=== PATIENT | male | born 1945 | race American Indian/Alaskan Native ===

== ENCOUNTER 2021-06-29 15:50 | Emergency (ER) | payer MEDICARE, MEDICAID ==
[~2021-06-29] VITALS: Ht 175.3 cm; Wt 100.0 kg
[~2021-06-29 15:50] MED LIST: ASPI-1265 PO; INSU100V9 SQ; LIRA0.6P2 SQ; LISI10TA27 PO; METO-384 PO
[2021-06-29] MEDS ORDERED: niCARDipine-NS 40mg/200ml IVPB 200 ML IV SCH (15:55)
[2021-06-29] MEDS ORDERED: proCHLORperazine 10 MG/2 ml inj IV ONE (15:55)
[2021-06-29 16:14] LABS: BASOPHILS % (AUTO) 0.6 % (0-1); EOSINOPHILS # (AUTO) 0.2 X10'3 (0-0.9); HEMOGLOBIN 13.6 g/dl (14.0-17.9); LYMPHOCYTES # (AUTO) 3.1 X10'3 (1.1-4.8); NEUTROPHILS # (AUTO) 3.3 X10'3 (1.8-7.7); RED CELL DISTRIBUTION WIDTH 13.3 % (11.5-14.5)
[2021-06-29 16:15] LABS: EOSINOPHILS % (AUTO) 3.2 % (0-6); HEMATOCRIT 39.9 % (42.0-52.0); LYMPHOCYTES % (AUTO) 44.2 % (21-51); MEAN CORPUSCULAR HEMOGLOBIN 30.3 PG (27.0-31.0); MEAN CORPUSCULAR HGB CONC 34.1 g/dL (33.0-36.5); MEAN PLATELET VOLUME 7.7 FL (7.4-10.4); MONOCYTES # (AUTO) 0.3 X10'3 (0-0.9); MONOCYTES % (AUTO) 4.8 % (2-12); NEUTROPHILS % (AUTO) 47.2 % (42-75); PLATELET COUNT 259 X10'3 (140-440); RED BLOOD COUNT 4.49 X10'6 (4.70-6.10)
[2021-06-29 16:19] LABS: APTT 29 SECONDS (22-32)
[2021-06-29 16:21] LABS: ALANINE AMINOTRANSFERASE 24 U/L (12-78); ALBUMIN/GLOBULIN RATIO 0.9 (1.1-1.5); ALKALINE PHOSPHATASE 95 IU/L (46-116); ANION GAP 15 (8-16); ASPARTATE AMINO TRANSFERASE 21 U/L (10-37); BILIRUBIN,TOTAL 0.3 MG/DL (0.1-1.0); BLOOD UREA NITROGEN 50 MG/DL (7-18); BUN/CREATININE RATIO 18.1 (5.4-32.0); CALCIUM 7.9 MG/DL (8.5-10.1); CHLORIDE 109 MMOL/L (99-107); CREATININE 2.76 MG/DL (0.60-1.10); GLUCOSE 170 MG/DL (70-104); POTASSIUM 4.7 MMOL/L (3.5-5.1); SODIUM 142 MMOL/L (135-145); TOTAL CARBON DIOXIDE 18.3 MMOL/L (24-32); TOTAL PROTEIN 6.4 G/DL (6.4-8.2); eGFR 23 ML/MIN
[2021-06-29] MEDS ORDERED: [UNRECOGNIZED DRUG - OTHER] IV ONE (16:35)
[2021-06-29] MEDS ORDERED: HUM PROTHROMBIN CPLX IV ONE (16:35)
--- NOTE | 2021-06-29 16:40 | NUR ---
CALLED PHARMACY WHO STATES WE ARE OUT OF [facility]. INFORMED EDMD ANNE-MARIE OF THIS.
[2021-06-29] MEDS ORDERED: ondansetron/PF 4mg/2ml inj IV ONE ×2 (16:45)
[2021-06-29 16:54] LABS: ETHANOL < 0.010 GM/DL (0.0-0.010)
[2021-06-29 16:58] VITALS: BP 166/77
--- NOTE | 2021-06-29 17:10 | NUR ---
PT NOW LEAVING-TRANSPORTED BY EMS WITH MICN/STROKE NURSE AISHA
== END 2021-06-29 17:23 | disposition short-term general hospital (02) ==
LOC: ER 15:51
DX: I61.4 Nontraumatic intracerebral hemorrhage in cerebellum (principal); I16.1 Hypertensive emergency; I48.91 Unspecified atrial fibrillation; I10 Essential (primary) hypertension; Z79.01 Long term (current) use of anticoagulants; Z95.0 Presence of cardiac pacemaker
CPT/HCPCS: 36415; 70450; 71045; 80053; 80320; 82948; 85025; 85610; 85730; 86885; 86900; 86901; 93005; 96365; 96375; 99291; J0780; J2405; J3490

== ENCOUNTER 2022-06-30 18:48 | Emergency (ER) | payer MEDICARE, MEDICAID ==
[~2022-06-30] VITALS: Ht 175.3 cm; Wt 89.5 kg
[~2022-06-30 18:48] MED LIST changes: +AMIO200T67 PO; -ASPI-1265 PO; -LISI10TA27 PO; +sodium bicarbonate tablet PO
[2022-06-30 19:31] VITALS: BP 170/78
[2022-06-30 19:36] LABS: BASOPHILS % (AUTO) 0.9 % (0-1); EOSINOPHILS # (AUTO) 0.2 X10'3 (0-0.9); EOSINOPHILS % (AUTO) 3.4 % (0-6); HEMATOCRIT 35.2 % (42.0-52.0); HEMOGLOBIN 11.8 g/dl (14.0-17.9); LYMPHOCYTES # (AUTO) 1.3 X10'3 (1.1-4.8); LYMPHOCYTES % (AUTO) 25.2 % (21-51); MEAN CORPUSCULAR HGB CONC 33.5 g/dL (33.0-36.5); MEAN CORPUSCULAR VOLUME 89.7 FL (78-98); MEAN PLATELET VOLUME 7.2 FL (7.4-10.4); MONOCYTES # (AUTO) 0.3 X10'3 (0-0.9); NEUTROPHILS # (AUTO) 3.4 X10'3 (1.8-7.7); NEUTROPHILS % (AUTO) 64.5 % (42-75); PLATELET COUNT 314 X10'3 (140-440); RED BLOOD COUNT 3.92 X10'6 (4.70-6.10); RED CELL DISTRIBUTION WIDTH 13.5 % (11.5-14.5); WHITE BLOOD COUNT 5.3 X10'3 (4.5-11.0)
[2022-06-30 19:57] LABS: ALANINE AMINOTRANSFERASE 17 U/L (12-78); ALBUMIN 2.4 G/DL (3.4-5.0); ALBUMIN/GLOBULIN RATIO 0.6 (1.1-1.5); ALKALINE PHOSPHATASE 93 IU/L (46-116); ANION GAP 9 (8-16); ASPARTATE AMINO TRANSFERASE 13 U/L (10-37); BILIRUBIN,TOTAL 0.4 MG/DL (0.1-1.0); BLOOD UREA NITROGEN 39 MG/DL (7-18); BUN/CREATININE RATIO 10.2 (5.4-32.0); CALCIUM 8.6 MG/DL (8.5-10.1); CHLORIDE 101 MMOL/L (99-107); CREATININE 3.84 MG/DL (0.60-1.10); GLUCOSE 416 MG/DL (70-104); MAGNESIUM 1.9 MG/DL (1.5-2.4); POTASSIUM 4.5 MMOL/L (3.5-5.1); SODIUM 140 MMOL/L (135-145); TOTAL CARBON DIOXIDE 29.8 MMOL/L (24-32); TOTAL PROTEIN 6.1 G/DL (6.4-8.2); eGFR 15 ML/MIN
--- NOTE | 2022-06-30 21:07 | NUR ---
pt refused iv start at this time.
[2022-06-30 21:20] LABS: CLARITY,URINE CLEAR (Clear); COLOR,URINE YELLOW (Yellow); GLUCOSE, URINE >=1000 mg/dl (Neg); KETONES,URINE NEGATIVE (Neg); LEUKOCYTE ESTERASE ,URINE NEGATIVE (Neg); NITRITES, URINE NEGATIVE (Neg); OCCULT BLOOD,URINE TRACE-INTACT (Neg); PROTEIN,URINE 100 mg/dl (Neg); UROBILINOGEN,URINE 0.2 E.U/dL (0.2-1.0)
[2022-06-30 21:25] LABS: UA COLLECTION TYPE NON-SPECIFIED
[2022-06-30 21:26] LABS: HYALINE CASTS 0-3 /LPF (NEGATIVE); SQUAMOUS EPITHELIAL CELL,UR FEW /LPF (FEW)
[2022-06-30 21:27] LABS: BACTERIA,URINE NONE SEEN /HPF (Neg); COARSE GRANULAR CAST 0-3 /LPF (NEGATIVE)
[2022-06-30 21:28] LABS: TRANSITIONAL EPI CELLS,URINE FEW /HPF; WBC,URINE 0-4 /HPF (0-4)
== END 2022-06-30 21:52 | disposition left against medical advice (07) ==
LOC: ER 18:50
DX: R73.9 Hyperglycemia, unspecified (principal); Z53.21 Procedure and treatment not carried out due to patient leaving prior to being seen by health care provider
CPT/HCPCS: 36415; 80053; 81001; 82948; 83735; 83880; 84484; 85025

== ENCOUNTER 2022-07-30 14:09 | Day surgery (SDC) | payer MEDICARE, MEDICAID ==
[~2022-07-30] VITALS: Ht 177.8 cm; Wt 87.8 kg
[2022-07-30] MEDS ORDERED: heparin 1,000unit/ml 10ml vial 10 ML ONE (14:24)
[2022-07-30 14:30] VITALS: BP 183/105
--- NOTE | 2022-07-30 14:30 | NUR ---
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 IR nurse states to just have consent signed and get med rec complete and then he can take the patient. No IV needed at this time.
--- NOTE | 2022-07-30 14:35 | NUR ---
Pt to procedure
[2022-07-30] MEDS ORDERED: normal saline 1000ml 1,000 ML IV PRN (14:40)
[2022-07-30] MEDS ORDERED: cefazolin 2gm/D5W 100mL 100 ML IV ONE (14:40)
[2022-07-30 15:15] VITALS: BP 141/80
--- NOTE | 2022-07-30 15:20 | NUR ---
Pt returned from procedure. Called Dr. Cooper to verify that we do not need the ancef for the patient. Dr. Cooper said no ancef needed, may DC ancef.
[2022-07-30 15:30] VITALS: BP 143/79
== END 2022-07-30 16:00 | disposition home or self-care (01) ==
LOC: SSTAY O 14:09
PROVIDERS: ATTEND Radiology Vascular & Interventional Radiology
DX: T82.598A Other mechanical complication of other cardiac and vascular devices and implants, initial encounter (principal); N18.6 End stage renal disease; Z79.899 Other long term (current) drug therapy; Z95.1 Presence of aortocoronary bypass graft; Z95.0 Presence of cardiac pacemaker; Z72.89 Other problems related to lifestyle; Z83.3 Family history of diabetes mellitus; Y83.8 Other surgical procedures as the cause of abnormal reaction of the patient, or of later complication, without mention of misadventure at the time of the procedure; Y92.89 Other specified places as the place of occurrence of the external cause
CPT/HCPCS: 36581; 77001; C1750; C1769; J1644; J7030; A9270; C1894

== ENCOUNTER 2024-06-30 13:58 | Emergency (ER) | payer MEDICARE, MEDICAID ==
[~2024-06-30] VITALS: Ht 177.8 cm; Wt 102.0 kg
[~2024-06-30 13:58] MED LIST changes: -AMIO200T67 PO; -INSU100V9 SQ
[2024-06-30 14:08] VITALS: TEMP 98.1
[2024-06-30] MEDS: metoprolol succinate 25mg (24-HOUR) SR. Tablet PO SCH (14:50)
[2024-06-30 15:57] LABS: BASOPHILS % (AUTO) 0.3 % (0-1); EOSINOPHILS # (AUTO) 0.1 X10'3 (0-0.9); EOSINOPHILS % (AUTO) 0.8 % (0-6); HEMATOCRIT 35.8 % (42.0-52.0); HEMOGLOBIN 12.3 g/dl (14.0-17.9); LYMPHOCYTES % (AUTO) 10.3 % (21-51); MEAN CORPUSCULAR HEMOGLOBIN 31.3 PG (27.0-31.0); MEAN CORPUSCULAR HGB CONC 34.2 g/dL (33.0-36.5); MEAN CORPUSCULAR VOLUME 91.6 FL (78-98); MONOCYTES # (AUTO) 0.5 X10'3 (0-0.9); MONOCYTES % (AUTO) 5.4 % (2-12); NEUTROPHILS # (AUTO) 8.1 X10'3 (1.8-7.7); NEUTROPHILS % (AUTO) 83.2 % (42-75); PLATELET COUNT 173 X10'3 (140-440); RED BLOOD COUNT 3.92 X10'6 (4.70-6.10); RED CELL DISTRIBUTION WIDTH 13.4 % (11.5-14.5); WHITE BLOOD COUNT 9.7 X10'3 (4.5-11.0)
[2024-06-30 16:11] LABS: ALBUMIN 2.9 G/DL (3.4-5.0); ANION GAP 8 (8-16); BLOOD UREA NITROGEN 22 MG/DL (7-18); BUN/CREATININE RATIO 6.1 (10.0-20.0); CALCIUM 8.9 MG/DL (8.5-10.1); CHLORIDE 97 MMOL/L (99-107); GLUCOSE 345 MG/DL (70-104); MAGNESIUM 1.9 MG/DL (1.5-2.4); POTASSIUM 3.8 MMOL/L (3.5-5.1); SODIUM 134 MMOL/L (135-145); TOTAL CARBON DIOXIDE 29.3 MMOL/L (24-32); eCRCL 17 ML/MIN; eGFR 16 ML/MIN
[2024-06-30] MEDS ORDERED: metoprolol tartrate 50mg tablet PO ONE (17:30)
[2024-06-30 17:49] VITALS: BP 157/88; PULSE 94; RESP 15; O2SAT 96
[2024-06-30] MEDS: metoprolol succinate 25mg (24-HOUR) SR. Tablet PO ONE ×2 (17:49)
[2024-06-30] MEDS ORDERED: METO-411 PO (17:50)
== END 2024-06-30 17:59 | disposition home or self-care (01) ==
LOC: ER 13:58
DX: I48.91 Unspecified atrial fibrillation (principal); E11.22 Type 2 diabetes mellitus with diabetic chronic kidney disease; N18.6 End stage renal disease; Z99.2 Dependence on renal dialysis; Z95.1 Presence of aortocoronary bypass graft; Z79.899 Other long term (current) drug therapy; Z72.89 Other problems related to lifestyle; Z45.02 Encounter for adjustment and management of automatic implantable cardiac defibrillator
CPT/HCPCS: 36415; 71045; 80048; 83735; 84484; 85025; 93005; 99285